=== PATIENT | female | born 1990 | race Two or more races ===

== ENCOUNTER 2024-07-16 18:35 | Emergency (ER) | payer OTHER, MEDICAID, SELFPAY ==
[2024-07-16 18:55] VITALS: BP 108/73; PULSE 70; RESP 20; TEMP 37.2; O2SAT 98
--- NOTE | 2024-07-16 19:03 | PD.EDRME ---
Rapid Medical Screening Exam RME Arrival date/time: 07/16/24 18:35 Chief Complaint: Abdominal Pain Time Seen by Provider: 07/16/24 18:42 Vital signs: Vital Signs Temperature 98.9 F 07/16/24 18:55 Pulse Rate 70 07/16/24 18:55 Respiratory Rate 20 07/16/24 18:55 Blood Pressure 108/73 07/16/24 18:55 Pulse Oximetry (%) 98 07/16/24 18:55 Oxygen Delivery Method Room Air 07/16/24 18:55 Vital signs reviewed by provider: Yes RME Narrative: 33-year-old female presents to the ED with complaint of left lower abdominal pain that radiates to her bilateral low back. She is also experiencing urinary frequency and dysuria. She also has a vaginal discharge. She went to her primary and they tested her urine which was negative for infection. She has felt feverish and chilled.
--- NOTE | 2024-07-16 19:06 | XR_ITS ---
Examination: Pelvic ultrasound, transabdominal, complete Technique: Transabdominal ultrasound of the pelvis performed using grayscale imaging Date and time of exam: July 16, 2024 2036 hours INDICATIONS: Pelvic pain beginning 5 days ago FINDINGS: Uterus 13.4 cm endometrial stripe 1.4 cm Right ovary 3.4 cm arterial flow Left ovary 3.3 cm arterial flow 19 x 16 x 20 mm simple-appearing ovarian cyst IMPRESSION: Left ovarian simple cyst 1.9 x 1.6 x 2.0 cm
--- NOTE | 2024-07-16 19:08 | XR_ITS ---
Examination: CT abdomen and pelvis without contrast. Coronal 3-D reconstructions. Sagittal 2-D reconstructions. Date and time of exam:July 16, 20242024 hours INDICATIONS: Left lower abdominal pain radiating to the back today left flank pain beginning one week ago CTDI: vol (mGy): 9.88 DLP: (mGycm): 507 Technique: Axial images of the abdomen have been obtained, 3 mm slice thickness Intravenous contrast material has not been administered. Low dose protocols were performed. One or more of the following dose reduction techniques were used; automated exposure control, adjustment of the mA and/or KV according to patient size, use of iterative reconstruction technique. Findings: No liver or splenic lesion Absent gallbladder No pancreatic or adrenal mass No renal or ureteral calculi, no hydronephrosis Aorta normal size Normal appendix No bowel obstruction 12 mm fat-containing umbilical hernia Anteverted uterus No uterine or adnexal Mass. No bladder mass or bladder calculi [id number]-[id number] narrowing L5-S1 disc space IMPRESSION: No renal or ureteral calculi, no hydronephrosis Normal appendix No bladder mass or bladder calculi [id number] degenerative disc disease L5-S1
[2024-07-16 19:49] LABS: Basophils % (Auto) 0 % (0-2.5); Eosinophils # (Auto) 0.1 Thou/mm3 (0.0-0.5); Eosinophils % (Auto) 1 % (0-10); Hematocrit 34.7 % (36.0-46.0); Hemoglobin 11.4 g/dL (12.0-16.0); Immature Granulocytes % (Auto) 0 % (0-0); Immature Granulocytes Auto 0.02 Thou/mm3 (0.00-0.00); Lymphocytes # (Auto) 3.4 Thou/mm3 (1.0-4.8); Lymphocytes % (Auto) 36 % (10-50); Mean Corpuscular HGB Conc 32.9 g/dl (31.0-37.0); Mean Corpuscular Hemoglobin 21.1 pg (25.0-35.0); Mean Corpuscular Volume 64 fL (80-100); Monocytes # (Auto) 0.6 Thou/mm3 (0.0-0.8); Monocytes % (Auto) 6 % (0-12); Neutrophils # (Auto) 5.5 Thou/mm3 (1.8-7.7); Neutrophils % (Auto) 57 % (37-80); Nucleated Red Blood Cell % 0 /100 WBC (0); Platelet Count 260 Thou/mm3 (140-440); RDW Standard Deviation 35.8 fL (36.4-46.3); Red Blood Count 5.41 Miln/mm3 (4.00-5.20); White Blood Count 9.6 Thou/mm3 (3.6-11.0)
[2024-07-16 19:50] LABS: Collection Type, Urine Clean Catch; RBC,Urine 0 /hpf (0-3); WBC,Urine 0 /hpf (0-5)
[2024-07-16 19:53] VITALS: BP 114/82; PULSE 72; RESP 20; TEMP 36.7; O2SAT 100
[2024-07-16 19:59] LABS: Bacteria,Urine 3+; Bilirubin,Urine Negative (Negative); Blood,Urine Negative (Negative); Clarity,Urine Clear (Clear/Hazy); Color,Urine Colorless (Lt Yel-Yel); Glucose, Urine Negative (Negative); Ketones,Urine Negative (Negative); Leukocyte Esterase,Urine Negative (Negative); Nitrite,Urine Negative (Negative); PH,Urine 6.5 (5.0-7.0); Protein,Urine Negative (Neg - Trace); Specific Gravity,Urine 1.005 (1.001-1.035); Squamous Epithelial Cell,Urine 2 /hpf (0-5); Urobilinogen,Urine Negative mg/dL (0.0-1.0)
[2024-07-16 20:07] LABS: HCG Qualitative,Urine Negative
[2024-07-16 20:34] LABS: Alanine Aminotransferase 11 U/L (10-49); Albumin, Serum 4.5 gm/dL (3.5-5.0); Albumin/Globulin Ratio 1.5 (1.2-2.2); Alkaline Phosphatase 67 U/L (46-116); Anion Gap 7 (7-16); Aspartate Amino Transferase 15 U/L (0-34); BUN/Creatinine Ratio 11 Ratio (12-20); Bilirubin,Total 0.3 mg/dL (0.3-1.2); Blood Urea Nitrogen 9 mg/dL (9-23); Calcium 9.7 mg/dL (8.3-10.6); Calcium (Corrected) 9.7 mg/dL (8.5-10.1); Carbon Dioxide 25.4 mMol/L (20.0-31.0); Chloride 103 mMol/L (98-107); Creatinine (Component) 0.8 mg/dL (0.6-1.3); Estimated Creatinine Clearance 98.6 mL/min (>60); Globulin 3.1 gm/dL (2.3-3.5); Glucose 93 mg/dL (74-106); Lipase 63 U/L (12-53); Osmolality,Calculated 268 (275-295); Potassium 3.7 mMol/L (3.4-5.1); Sodium 135 mMol/L (136-145); Total Protein 7.6 gm/dL (5.7-8.2); eGFR > 60 See Note
[2024-07-16 21:22] LABS: Amylase 91 U/L (30-118)
[2024-07-16 21:46] VITALS: BP 109/72; PULSE 76; RESP 16; TEMP 36.6; O2SAT 100
--- NOTE | 2024-07-16 22:33 | PC.NURSE ---
PT LEFT AMA DID NOT WANT TO WAIT FOR D/C PAPERS AND MEDICATION. PROVIDER AWARE.
--- NOTE | 2024-07-16 22:58 | EDNOTE_ITS ---
ED Abdominal Pain RME/HPI General Chief Complaint: Abdominal Pain Stated complaint: SEVERE L) LOWER ABD PAIN RADIATING ACROSS BACK Time seen by provider: 07/16/24 18:42 Arrival date/time: 07/16/24 18:35 RME / HPI RME / HPI narrative: Dr. Finnegan?s Main ED Evaluation: 33 y/o female presents to ED c/o LLQ abdominal pain x 1 day. Patient Patient reports associated dysuria. Patient denies taking any Motrin or Tylenol at home. Earlier, patient went to the clinic thinking she had a UTI, but was advised to come to ED for further evaluation. Patient denies any N/V/D, constipation, fever, chills, cough, chest pain, shortness of breath or any other associated symptoms. NKDA. Related Data Previous Rx's ?Medication ?Instructions ?Recorded acetaminophen 500 mg capsule 1,000 mg (2 x 500 mg) PO Q6H PRN 07/16/24 pain #30 caps ibuprofen 600 mg tablet 600 mg PO Q6H PRN pain #20 t abs 07/16/24 Allergies Allergy/AdvReac Type Severity Reaction Status Date / Time WHEAT FLOUR Allergy Severe Swelling Uncoded 07/16/24 18:40 of Lip/Tongue/Throat Review of Systems Review of Systems Systems Reviewed: All systems reviewed, normal except as documented Past Medical History Past Medical History NEUROLOGIC: Positive Neurological Disorders and Migraine (had a blood clot brain 10 yrs ago had blood thinners, done treatment) GASTROINTESTINAL: Positive Gastrointestinal Disorders, Gall Bladder Disease and Obesity REPRODUCTIVE: Positive Previous Pregnancies Family History FAMILY HISTORY: Positive Family Cardiac Disorders Surgical History SURGICAL: Positive Section (x 1) ED Exam Narrative Physical exam: GENERAL APPEARANCE: alert and oriented x 4, well-developed, well-nourished, no acute distress VITALS: All vitals were reviewed and the pulse ox is 100% on room air, which is normal according to my interpretation. HEENT: Normocephalic, atraumatic; pupils equal, round, reactive to light; EOMI; mucous membranes pink, moist; oropharynx clear NECK: Supple LUNGS: CTABL; no wheezes, no rales, no rhonchi HEART: Regular rate, regular rhythm; normal S1, S2; no murmurs ABDOMEN: non distended; normal BS; soft, mld-moderate TTP of LLQ/pelvic area, no guarding, no rebound; no masses, no organomegaly, no hernia BACK: no CVA tenderness EXTREMITIES: atraumatic; no edema NEUROLOGIC: awake; alert and oriented x4; cranial nerves II-XII grossly intact; no focal sensory or motor deficits PSYCHIATRIC: appropriate mood and affect SKIN: warm, dry, normal color; no rashes Course Quality Measures none Orders Category Date Time Status NPO STAT Care 07/16/24 19:[address] abdomen pelvis wo con Stat Exams 07/16/24 19:08 Completed US pelvic complete Stat Exams 07/16/24 19:06 Completed Amylase Stat Lab 07/16/24 19:19 Completed CBC Stat Lab 07/16/24 19:19 Completed Comprehensive Metabolic Panel Stat Lab 07/16/24 19:19 Completed HCG Qualitative,Urine Stat Lab 07/16/24 19:42 Completed Lipase Stat Lab 07/16/24 19:19 Completed Path Review Blood Smear Stat Lab 07/16/24 19:19 Completed Urinalysis Stat Lab 07/16/24 19:42 Completed Acetaminophen Tab [Tylenol ES Tab] Med 07/16/24 22:16 Discontinued 1,000 mg PO X1 ONE Ibuprofen Tab [Motrin Tab] Med 07/16/24 22:16 Discontinued 600 mg PO X1 ONE Vital Signs Vital signs: Vital Signs Temperature 98.9 F 07/16/24 18:55 Pulse Rate 70 07/16/24 18:55 Respiratory Rate 20 07/16/24 18:55 Blood Pressure 108/73 07/16/24 18:55 Pulse Oximetry (%) 98 07/16/24 18:55 Oxygen Delivery Method Room Air 07/16/24 18:55 Abdominal Pain MDM MDM Narrative MDM Narrative:: Scribe Attestation: Eunice Crowell am scribing for and in the presence of Dr. Finnegan. Provider Notation: Although this document has been carefully reviewed, there may still be some phonetic and other typographical errors.? These errors are purely grammatical due to imperfections in the software program and should not be construed in any way to? compromise the substance of the patient's medical care during this visit. Patient data External records reviewed:: [facility] previous records ( Prior ED records reviewed from 09/08/22. Patient was seen for Bilateral leg pain.) Clinical information provided by:: patient Social determinants that could affect healthcare access:: none Patient has the following chronic illnesses:: Gall bladder, Obesity, Migraine How is presenting disease/condition affected by chronic disease/condition?: uneffected by Evaluation data The following diagnostics were reviewed and interpreted by me:: lab results and radiology exam(s) Lab and/or radiology exams considered but not ordered:: None. Interpretation Summary: LABS Chemistry: Sodium 135, BUN/Creatinine 11, Osmality 268, Lipase 63. UA shows bacteria 3+. RADIOLOGY Abdomen/Pelvis CT: Patient: SANTY OGLESBY. Record#: [id number] Birthdate: 1990 Age/Sex: 33 / F Location: [facility] Attending Dr: Ordering Physician: Zandra Ott PA-C Date of Service: 07/16/24 Procedure(s): CT abdomen pelvis wo con Accession Number(s): [id number] cc: Kimani Head MD; NO PRIMARY/FAMILY,PHYSICIAN; Zandra Ott PA-C~ Examination: CT abdomen and pelvis without contrast. Coronal 3-D reconstructions. Sagittal 2-D reconstructions. Date and time of exam:July 16, 20242024 hours INDICATIONS: Left lower abdominal pain radiating to the back today left flank pain beginning one week ago CTDI: vol (mGy): 9.88 DLP: (mGycm): 507 Technique: Axial images of the abdomen have been obtained, 3 mm slice thickness Intravenous contrast material has not been administered. Low dose protocols were performed. One or more of the following dose reduction techniques were used; automated exposure control, adjustment of the mA and/or KV according to patient size, use of iterative reconstruction technique. Findings: No liver or splenic lesion Absent gallbladder No pancreatic or adrenal mass No renal or ureteral calculi, no hydronephrosis Aorta normal size Normal appendix No bowel obstruction 12 mm fat-containing umbilical hernia Anteverted uterus No uterine or adnexal Mass. No bladder mass or bladder calculi Xudt-tx-ahmpeyss narrowing L5-S1 disc space IMPRESSION: No renal or ureteral calculi, no hydronephrosis Normal appendix No bladder mass or bladder calculi Vjbv-ww-qnazyzoc degenerative disc disease L5-S1 Dictated By: Kimani Head MD Signed By: <Electronically signed by Kimani Head MD in OV> 07/16/242104 Pelvis US: Patient: SANTY OGLESBY. Record#: [id number] Birthdate: 1990 Age/Sex: 33 / F Location: [facility] Attending Dr: Ordering Physician: Zandra Ott PA-C Date of Service: 07/16/24 Procedure(s): US pelvic complete Accession Number(s): [id number] cc: Kimani Head MD; NO PRIMARY/FAMILY,PHYSICIAN; Zandra Ott PA-C~ Examination: Pelvic ultrasound, transabdominal, complete Technique: Transabdominal ultrasound of the pelvis performed using grayscale imaging Date and time of exam: July 16, 2024 203 hours INDICATIONS: Pelvic pain beginning 5 days ago FINDINGS: Uterus 13.4 cm endometrial stripe 1.4 cm Right ovary 3.4 cm arterial flow Left ovary 3.3 cm arterial flow 19 x 16 x 20 mm simple-appearing ovarian cyst IMPRESSION: Left ovarian simple cyst 1.9 x 1.6 x 2.0 cm Dictated By: Kimani Head MD Signed By: <Electronically signed by Kimani Head MD in OV> 07/16/242112 Medications / Prescriptions Medications or Prescriptions considered but not ordered:: None Medication administrations:: Medication Administration History Discontinued Medications Acetaminophen (Acetaminophen 500 Mg Tablet) 1,000 mg PO X1 ONE Stop: 07/16/24 22:17 Ibuprofen (Ibuprofen Tab 600 Mg Tablet) 600 mg PO X1 ONE Stop: 07/16/24 22:17 See above if any. Consultations Consultation(s) initiated? (list below): No Diagnosis Differential diagnosis abdominal pain: abdominal pain, acute appendicitis, calculus of kidney, diverticulitis, endometriosis and gastroenteritis Most likely diagnosis given after review of the tests above:: See clinical impression below. Admission Indicated Admission indicated?: not indicated Explain why admission is indicated or not indicated:: Patient has no emergent abnormalities in their studies and can be managed on an outpatient basis. Admission Request Was there a request for admission?: No Disposition Plan Disposition Plan: Discharge Discharge Attestation Discharge Attestation: The patient and all family members were given an opportunity to ask questions and understood the discharge instructions. Discharge instructions specifically effects, indications for sooner follow up or return to the emergency department, and the expected course of current diagnosis. Patient condition: Stable Discharge Plan Plan Patient Disposition: HOME (Self Care) Discharge Disposition comment: Stable for discharge home Patient condition on transfer: Stable Prescriptions/Referrals Prescriptions/Med Rec: New acetaminophen 500 mg capsule 1,000 mg PO Q6H PRN (Reason: pain) Qty: 30 0RF ibuprofen 600 mg tablet 600 mg PO Q6H PRN (Reason: pain) Qty: 20 0RF Referrals: [facility] [Provider Group] - In 1 week Problem List Clinical Impression: Ovarian cyst Patient/Caregiver Discharge Instructions Discharge Activity: activity as tolerated Education Materials: Understanding Ovarian Cysts, Treatment for Ovarian Cysts, ED Ovarian Cyst Additional Instructions: Return to the emergency department for any worsening or any further medical problems and we will help you. Otherwise you should follow-up with your primary care doctor, your primary OB or in the [facility] clinic within the next several days There are 2 prescriptions waiting for you at the pharmacy. One of them is for acetaminophen and the other is ibuprofen. Take 2 tabs of the acetaminophen and 1 tab of the ibuprofen together at the same time every 6 hours for pain. Print Language: Yakut Stand Alone Forms: Sangeeta Award Info., Patient Portal Info Letter
[2024-07-17 01:35] LABS: Path Review Blood Smear Sent to Pathologist
== END 2024-07-16 22:34 | disposition home or self-care (01) ==
PROVIDERS: Physician Assistant; Emergency Provider Emergency Medicine
DX: N83.292 Other ovarian cyst, left side (principal); M51.370 Other intervertebral disc degeneration, lumbosacral region with discogenic back pain only
CPT/HCPCS: 36415; 74176; 76856; 80053; 81001; 81025; 82150; 83690; 85025; 99284

== ENCOUNTER 2024-11-14 10:20 | Outpatient (AMB) | payer OTHER, MEDICAID, SELFPAY ==
[2024-11-14 10:28] VITALS: BP 110/75; PULSE 93; RESP 18; TEMP 36.7; O2SAT 97; BMI 32.3
--- NOTE | 2024-11-14 10:28 | AMB.GYNCLNOT ---
Vital Signs 11/14/24 10:28 Height 1.6 m Height Method Stated Weight 82.781 kg Weight Measurement Method Standing Scale BMI 32.3 BP 110/75 Blood Pressure Source Automatic Cuff Blood Pressure Location Left Upper Arm Position Sitting Respiration 18 Pulse 93 Pulse Source Monitor Temp 98.1 F Temp Source Oral Pulse Oximetry (%) 97 Oxygen Delivery Method Room Air Allergies/Home Meds Allergies & Medications Allergies WHEAT FLOUR Allergy (Severe, Uncoded 11/14/24 10:29) Swelling of Lip/Tongue/Throat Medication Reconciliation letrozole 2.5 mg tablet 2.5 mg PO QDAY 5 days #5 tabs 11/14/24 [Rx] Intake Visit Data Collection New Patient or Established: Established Patient (seen at [facility] within 3 years) Reason for Visit:: INFERTILITY CONCERNS Seen by Clinical Staff ONLY (RN/MA): No 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: No Do You Feel Safe at Home: Yes Authorities Contacted: N/A PCP or OBGYN visit in last 3 months: Yes Hx Now: No Are you currently on any form of Control: No Last menstrual period: 10/26/24 Pain Present Currently: No Pain Scale Used: Escobar-Chong/Numerical Pain scale:: 0 Smoking Status Smoking Status: Never smoker Reproduction Order Processor 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 Reproduction 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 Processor 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 Menstrual regularity: regular Flow: normal Monthly: Yes How many days does period last: 4 Age at menarche: 11 Currently sexually active: Yes [place]ERETTE: Past Medical History Past Medical History: Yes Hx Neurological Disorders, No Hx Breast Cancer, No Hx Cardiac Disorders, No Hx Cancer, No Hx Blood Disorders, Yes Hx Gastrointestinal Disorders, No Hx Renal Disease, No Hx Diabetes Mellitus Type 1 and No Hx Diabetes Mellitus Type 2 Questionnaires Covid-19 Vaccine Questionnaire Has patient been vacinated for Covid-19 Have you been vacinated for Covid-19: Yes PHQ-9 PHQ-2 Over the last 2 weeks, how often have you been bothered by any of the following problems? 1. Little interest or pleasure in doing things: not at all 2. Feeling down, depressed, or hopeless: not at all Total score: 0 PHQ-9 3. Trouble falling or staying asleep, or sleeping too much: Not at all 4. Feeling tired or having little energy: Not at all 5. Poor appetite or overeating: Not at all 6. Feeling bad about yourself - or that you are a failure or have let yourself or your family down: Not at all 7. Trouble concentrating on things, such as reading the newspaper or watching television: Not at all 8. Moving or speaking so slowly that other people could have noticed? - Or the opposite - being so fidgety or restless that you have been moving around a lot more than usual: not at all 9. Thoughts that you would be better off or of hurting yourself in some way: Not at all Total score: 0 Source: Developed by Drs. Calvin Minaya, Heather Abreu, Christopher Conley and colleagues, with an educational lisa from [employer]. Depression screen completed yes Social History Living Situation History Housing: House Tobacco History Smoking Status: Never smoker Alcohol History Alcohol Intake: Never Domestic Abuse History Do You Feel Safe at Home: Yes History of Present Illness HPI Narrative Eunice Dasilva, a patient with a history of prediabetes and low vitamin D, presents for follow-up of an infertility evaluation conducted over a year ago. She reports regular menstrual cycles and positive ovulation tests, indicating she is timing intercourse accordingly. The patient experienced a miscarriage in September of the previous year. Since her last visit, Eunice has been managing her prediabetes through diet. She reports experiencing hot flushes, which she first noticed when she began losing weight. These hot flushes are significant enough that she uses a fan for relief. She denies any foul-smelling discharge or other gynecological symptoms. Euncie mentions difficulty in scheduling appointments due to limited provider availability. She has been tracking her menstrual cycles closely, expecting her next period around the 14th or 15th of the current month. 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 Exam General General Appearance: alert, in no apparent distress and healthy appearing Head Head exam: atraumatic Neck Neck exam: Present normal inspection and trachea midline Chest Chest inspection: Present normal inspection and symmetric chest wall rise External exam: Present normal external exam; Absent tenderness Neuro Neurological exam: Present oriented X3 Psych Psychiatric exam: Present normal affect and normal mood Office Procedures OB Clinic LOC & Office Proc's Nursing/Assessment Patient Status: Established Patient OB Clinic Nursing Assessment: Medication Reconciliation, Update PMH in EMR and Vital Signs OB Clinic Coordination of Care: Complex Care and Chronic Disease 1-5, Consent,records obtained, informed consent, Education Simp Pt/Fam, Lab and Imaging orders, Results/Orders obtained and Staff clarify orders Established Patient Charge Established Patient Point Assignment: 105 Established Patient Point Charge: EP Level 3 (80-115) Assessment & Plan Diagnosis / Problem List (1) Abnormal uterine and vaginal bleeding, unspecified: Status: Acute Plan Infertility Assessment: Patient reports regular menstrual cycles with positive ovulation tests. She times intercourse with ovulation. Previous evaluation revealed prediabetes and low vitamin D, which may be contributing factors to fertility issues. No foul-smelling discharge or other symptoms reported. Plan: - Prescribe letrozole for 5 days starting on day 3 of menstrual cycle - Order A1c and thyroid function tests - Schedule ultrasound to evaluate for fibroids, cysts, or other changes since last evaluation - Continue ovulation monitoring and timed intercourse - Follow-up appointment in approximately one month to review results and treatment response Prediabetes Assessment: Patient was previously diagnosed with prediabetes that was diet-managed. No recent A1c testing has been performed to reassess glycemic control. Plan: - Order A1c test - Results to be reviewed at follow-up appointment Vitamin D Deficiency Assessment: Patient had low vitamin D levels on previous evaluation. Current status unknown. Plan: - Consider rechecking vitamin D levels Hot Flushes Assessment: Patient reports experiencing hot flushes, which she noticed after weight loss. This symptom is assessed as likely related to weight loss rather than premature menopause, given the patient's reproductive goals. Plan: - Reassure patient that hot flushes can be a normal occurrence with weight loss due to fluid shifts - Monitor symptoms
== END 2024-11-14 10:52 | disposition home or self-care (01) ==
LOC: HODSOBC 10:20
PROVIDERS: Supervising Provider Obstetrics & Gynecology; Visit Provider Obstetrics & Gynecology
DX: N93.9 Abnormal uterine and vaginal bleeding, unspecified (principal); N97.9 Female infertility, unspecified; R73.03 Prediabetes; E55.9 Vitamin D deficiency, unspecified; R23.2 Flushing
CPT/HCPCS: 99213; G0463

== ENCOUNTER → 2024-11-14 | Outpatient (CLI) | payer OTHER, MEDICAID, SELFPAY ==
[2024-11-14 12:19] LABS: Glucose Estimated Average 108 mg/dL (80-131); Hemoglobin A1C 5.4 % Hgb (4.8-6.0)
[2024-11-14 12:26] LABS: Thyroid Stimulating Hormone 1.81 uIU/mL (0.55-4.78)
[2024-11-14 12:27] LABS: Follicle Stimulating Hormone 6.81 mIU/mL (See Note)
== END | disposition home or self-care (01) ==
PROVIDERS: PCP Family Medicine; Referring Provider Obstetrics & Gynecology; Visit Provider Obstetrics & Gynecology
DX: N93.9 Abnormal uterine and vaginal bleeding, unspecified (principal)
CPT/HCPCS: 36415; 83001; 83036; 84443

== ENCOUNTER → 2024-12-07 | Outpatient (CLI) | payer OTHER, MEDICAID, SELFPAY ==
--- NOTE | 2024-12-07 16:15 | XR_ITS ---
Examination: Pelvic ultrasound, transabdominal, complete Technique: Transabdominal ultrasound of the pelvis performed using grayscale imaging Date and time of exam: December 07, 2024, 1559 hrs. Indications: Pelvic sonogram July 16, 2024 left ovarian cyst 20 mm Findings: Uterus 11.6 cm endometrial stripe 0.1 cm No uterine mass or intrauterine gestation Right ovary 4.0 cm arterial flow, 32 x 22 x 21 mm cyst Left ovary 2.4 cm arterial flow Impression: Right ovarian simple cyst 32 x 22 x 21 mm
== END | disposition home or self-care (01) ==
PROVIDERS: PCP Physician Assistant Medical; Referring Provider Obstetrics & Gynecology; Visit Provider Obstetrics & Gynecology
DX: N83.291 Other ovarian cyst, right side (principal)
CPT/HCPCS: 76856

== ENCOUNTER 2024-12-23 05:01 | Emergency (ER) | payer OTHER, MEDICAID, SELFPAY ==
[2024-12-23 05:02] VITALS: BMI 31.8
--- NOTE | 2024-12-23 05:05 | EKG_ITS ---
[facility] Test Date: 2024-12-23 Pat Name: SANTY OGLESBY Department: Room: - Gender: Female Reporter Anchor: : 1990 Requested By: ED Temporary Provider Order Number: [id number] Reading MD: ED Temporary Provider Measurements Intervals [place] Rate: 84 P: 35 [place]: 153 QRS: 23 QRSD: 89 T: 48 QT: 352 QTc: 417 Interpretive Statements SINUS RHYTHM POSSIBLE LEFT ATRIAL ENLARGEMENT [-0.1mV P-WAVE IN V1/V2] No previous ECG available for comparison /store/S0/[id number].pdf
[2024-12-23 05:16] VITALS: BP 111/52; PULSE 82; RESP 18; TEMP 36.7; O2SAT 98
--- NOTE | 2024-12-23 05:21 | XR_ITS ---
EXAMINATION: PA chest single view TECHNIQUE: Upright PA chest single view Date and time: December 23, 2024, 0545 hours, comparison October 30, 2013 INDICATIONS: Chest pain shortness of breath beginning 2.5 months ago FINDINGS: Normal heart size Lungs are clear. Osseous tractors are intact. IMPRESSION: No active disease
--- NOTE | 2024-12-23 05:28 | PD.EDRME ---
Rapid Medical Screening Exam RME Arrival date/time: 12/23/24 05:01 This is a case of 34-year-old female with no medical history came into the emergency room due to chest pain palpitation and shortness of breath starting last night persistence of the symptoms this patient decided to start consult her in the emergency room Chief Complaint: Chest Pain Time Seen by Provider: 12/23/24 05:18 Vital signs: Vital Signs Temperature 98.1 F 12/23/24 05:16 Pulse Rate 82 12/23/24 05:16 Respiratory Rate 18 12/23/24 05:16 Blood Pressure 111/52 L 12/23/24 05:16 Pulse Oximetry (%) 98 12/23/24 05:16 Oxygen Delivery Method Room Air 12/23/24 05:16
[2024-12-23 06:23] LABS: Collection Type, Urine Clean Catch
[2024-12-23 06:27] LABS: Basophils # (Auto) 0.0 Thou/mm3 (0.0-0.2); Basophils % (Auto) 0 % (0-2.5); Eosinophils # (Auto) 0.2 Thou/mm3 (0.0-0.5); Eosinophils % (Auto) 3 % (0-10); Hematocrit 37.2 % (36.0-46.0); Hemoglobin 11.4 g/dL (12.0-16.0); Immature Granulocytes Auto 0.03 Thou/mm3 (0.00-0.00); Lymphocytes # (Auto) 2.2 Thou/mm3 (1.0-4.8); Lymphocytes % (Auto) 27 % (10-50); Mean Corpuscular HGB Conc 30.6 g/dl (31.0-37.0); Mean Corpuscular Hemoglobin 20.1 pg (25.0-35.0); Mean Corpuscular Volume 66 fL (80-100); Monocytes # (Auto) 0.6 Thou/mm3 (0.0-0.8); Monocytes % (Auto) 7 % (0-12); Neutrophils # (Auto) 5.2 Thou/mm3 (1.8-7.7); Neutrophils % (Auto) 63 % (37-80); Nucleated Red Blood Cell # 0.00 Thou/mm3 (0.00-0.00); Nucleated Red Blood Cell % 0 /100 WBC (0); Platelet Count 340 Thou/mm3 (140-440); RDW Standard Deviation 37.0 fL (36.4-46.3); Red Blood Count 5.67 Miln/mm3 (4.00-5.20); White Blood Count 8.3 Thou/mm3 (3.6-11.0)
[2024-12-23 06:38] LABS: Bacteria,Urine Rare; Bilirubin,Urine Negative (Negative); Blood,Urine Negative (Negative); Clarity,Urine Clear (Clear/Hazy); Color,Urine Colorless (Lt Yel-Yel); Glucose, Urine Negative (Negative); Ketones,Urine Negative (Negative); Leukocyte Esterase,Urine Negative (Negative); Nitrite,Urine Negative (Negative); PH,Urine 6.0 (5.0-7.0); Protein,Urine Negative (Neg - Trace); RBC,Urine 3 /hpf (0-3); Specific Gravity,Urine 1.008 (1.001-1.035); Squamous Epithelial Cell,Urine 5 /hpf (0-5); Urobilinogen,Urine Negative mg/dL (0.0-1.0); WBC,Urine < 1 /hpf (0-5)
[2024-12-23 06:39] LABS: HCG Qualitative,Urine Negative
[2024-12-23 06:47] LABS: D-Dimer 489 ng/mL (<600)
[2024-12-23 06:51] LABS: B-Type Natriuretic Peptide < 20 pg/mL (0-100)
[2024-12-23 06:55] LABS: Alanine Aminotransferase 12 U/L (10-49); Albumin, Serum 4.3 gm/dL (3.5-5.0); Albumin/Globulin Ratio 1.5 (1.2-2.2); Alkaline Phosphatase 69 U/L (46-116); Anion Gap 10 (7-16); Aspartate Amino Transferase 16 U/L (0-34); BUN/Creatinine Ratio 10 Ratio (12-20); Bilirubin,Total 0.2 mg/dL (0.3-1.2); Blood Urea Nitrogen 10 mg/dL (9-23); Calcium 9.0 mg/dL (8.3-10.6); Calcium (Corrected) 9.0 mg/dL (8.5-10.1); Carbon Dioxide 24.0 mMol/L (20.0-31.0); Chloride 107 mMol/L (98-107); Creatinine (Component) 1.0 mg/dL (0.6-1.3); Estimated Creatinine Clearance 79.5 mL/min (>60); Globulin 2.8 gm/dL (2.3-3.5); Glucose 97 mg/dL (74-106); Osmolality,Calculated 280 (275-295); Potassium 4.0 mMol/L (3.4-5.1); Sodium 141 mMol/L (136-145); Thyroid Stimulating Hormone 2.00 uIU/mL (0.55-4.78); Total Protein 7.1 gm/dL (5.7-8.2); Troponin I < 0.002 ng/mL (0.0-0.045); eGFR > 60 See Note
[2024-12-23 07:18] VITALS: BP 114/59; PULSE 83; RESP 19; TEMP 36.6; O2SAT 97
--- NOTE | 2024-12-23 07:38 | EDNOTE_ITS ---
ED Chest Pain RME/HPI General Chief Complaint: Chest Pain Stated Complaint: CHEST THIGHTNESS, SMITH, COUGH SINCE OCTOBER Time Seen by Provider: 12/23/24 05:18 Arrival date/time: 12/23/24 05:01 RME / HPI RME / HPI narrative: 12/23/24 05:01 This is a case of 34-year-old female with no medical history came into the emergency room due to chest pain palpitation and shortness of breath starting last night persistence of the symptoms this patient decided to start consult her in the emergency room DR. GUTIERREZ MAIN ED EVALUATION: 34-year-old female with no significant past medical history presenting to the Emergency Department for evaluation of chest pain ongoing since late October 2024. The pain is associated with a persistent dry cough, occasional wheezing, and intermittent headaches. The cough is worse at night. She also reports mild sore throat, hot flashes, and episodes of sweating 2?3 times per week. She denies rhinorrhea, fever, chills, nausea, vomiting, or shortness of breath. Patient states she has seen her primary care physician but did not establish a diagnosis. She takes no daily medications. Related Data Previous Rx's ?Medication ?Instructions ?Recorded letrozole 2.5 mg tablet 2.5 mg PO QDAY 5 days #5 tab s 11/14/24 benzonatate 200 mg capsule 200 mg PO TID PRN cough #20 caps 12/23/24 Allergies Allergy/AdvReac Type Severity Reaction Status Date / Time WHEAT FLOUR Allergy Severe Swelling Uncoded 12/23/24 05:02 of Lip/Tongue/Throat Review of Systems Review of Systems Systems Reviewed: All systems reviewed, normal except as documented Past Medical History Social History SMOKING STATUS: Never smoker SUBSTANCE USE: does not use ALCOHOL: Never ED Exam Narrative Physical exam: Constitutional: Awake, alert, nontoxic, no acute distress, occasional dry cough HEENT: Normocephalic, atraumatic, extraocular movements intact. Neck: Supple CV: Regular rate and rhythm, no murmurs/rubs/gallops Lungs: Clear to auscultation BL, no respiratory distress. Abd: Soft, NT, ND, no HSM noted to palpation Extremities: No deformities, no edema noted Neuro: AAOx3, no acute neuro deficit noted. Skin: Warm, dry, intact Course Quality Measures none Orders Category Date Time Status EKG (ED ONLY) *Do not use* NOW Care 12/23/24 05:05 Completed EKG (ED Only) Stat Exams 12/23/24 05:05 Draft XR chest 1V Stat Exams 12/23/24 05:21 Completed BNP [B-Type Natriuretic Peptide] Stat Lab 12/23/24 06:00 Completed CBC Stat Lab 12/23/24 06:00 Completed Cocci Serology IgM with reflex to IgG [Cocci Serology, Lab 12/23/24 07:59 Received Unk History] Stat Comprehensive Metabolic Panel Stat Lab 12/23/24 06:00 Completed D-Dimer Stat Lab 12/23/24 06:00 Completed HCG Qualitative,Urine Stat Lab 12/23/24 06:01 Completed TSH [Thyroid Stimulating Hormone] Stat Lab 12/23/24 06:00 Completed Troponin I Stat Lab 12/23/24 06:00 Completed Urinalysis Stat Lab 12/23/24 06:01 Completed Acetaminophen Ivpb [Ofirmev Inj] Med 12/23/24 07:38 Discontinued 1,000 mg in 100 ml IV NOW Ketorolac Inj [Toradol Inj] Med 12/23/24 07:38 Discontinued 30 mg IVP X1 ONE Prochlorperazine Inj [Compazine Inj] Med 12/23/24 07:38 Discontinued 10 mg IV X1 ONE Vital Signs Vital signs: Vital Signs Temperature 98.1 F 12/23/24 05:16 Pulse Rate 82 12/23/24 05:16 Respiratory Rate 18 12/23/24 05:16 Blood Pressure 111/52 L 12/23/24 05:16 Pulse Oximetry (%) 98 12/23/24 05:16 Oxygen Delivery Method Room Air 12/23/24 05:16 Chest Pain MDM Narrative MDM Narrative:: IZee am scribing for and in the presence of Dr. Gutierrez. Patient coming in for chronic dry cough ongoing for last couple of months. Has generally benign exam today, vitally stable, labs generally unremarkable. Advised on symptomatic treatment at this time. Test for valley fever was sent off. To follow-up closely with her primary doctor for further outpatient evaluation and management. Patient data External records reviewed:: [facility] previous records Clinical information provided by:: patient and spouse Social determinants that could affect healthcare access:: none Patient has the following chronic illnesses:: Denies any PMHx, surgeries, daily medications, or known allergies. How is presenting disease/condition affected by chronic disease/condition?: no chronic disease Evaluation data The following diagnostics were reviewed and interpreted by me:: lab results, radiology exam(s) and EKG tracing(s) (My interpretation: EKG performed at 0513 hours, sinus rhythm, rate 84, no STEMI) Lab and/or radiology exams considered but not ordered:: none Interpretation Summary: See MDM narrative above. RADIOLOGY Procedure(s): XR chest 1V Accession Number(s): [id number] cc: Kimani Head MD; NO PRIMARY/FAMILY,PHYSICIAN; Yun Varghese~ EXAMINATION: PA chest single view TECHNIQUE: Upright PA chest single view Date and time: December 23, 2024, 0545 hours, comparison October 30, 2013 INDICATIONS: Chest pain shortness of breath beginning 2.5 months ago FINDINGS: Normal heart size Lungs are clear. Osseous tractors are intact. IMPRESSION: No active disease Dictated By: Kimani Head MD Medications / Prescriptions Medications or Prescriptions considered but not ordered:: none Medication administrations:: Medication Administration History Discontinued Medications Acetaminophen (Ofirmev Inj) 1,000 mg in 100 mls @ 250 mls/hr IV NOW ONE Stop: 12/23/24 08:01 Last Infusion: 12/23/24 09:01 Dose: Infused Documented By: Admin: 12/23/24 08:25 Dose: 250 mls/hr Documented By: CAMERON Ketorolac Tromethamine (Ketorolac Inj 30 Mg/Ml Vial) 30 mg IVP X1 ONE Stop: 12/23/24 07:39 Last Admin: 12/23/24 08:25 Dose: 30 mg Documented By: CAMERON Prochlorperazine Edisylate (Prochlorperazine Inj 5 Mg/Ml Vial 2 Ml) 10 mg IV X1 ONE; Protocol Stop: 12/23/24 07:39 Last Admin: 12/23/24 08:24 Dose: 10 mg Documented By: CAMERON Comments: GIVEN THROUGH PT'S IV 18G R AC IN 2 MINUTES see above if any Consultations Consultation(s) initiated? (list below): No Diagnosis Chest Pain Differential Diagnosis: other (Viral bronchitis, post-viral cough, reactive airway disease/asthma, GERD-related cough, perimenopausal symptoms, atypical pneumonia.) Most likely diagnosis given after review of the tests above:: Headache Cough Admission Indicated Admission indicated?: not indicated Admission Request Was there a request for admission?: No Disposition Plan Disposition Plan: Discharge Discharge Attestation Discharge Attestation: The patient and all family members were given an opportunity to ask questions and understood the discharge instructions. Discharge instructions specifically effects, indications for sooner follow up or return to the emergency department, and the expected course of current diagnosis. Patient condition: Stable Discharge Plan Plan Patient Disposition: HOME (Self Care) Patient condition on transfer: Stable Prescriptions/Referrals Prescriptions/Med Rec: New benzonatate 200 mg capsule 200 mg PO TID PRN (Reason: cough) Qty: 20 0RF No Action letrozole 2.5 mg tablet 2.5 mg PO QDAY 5 Days Qty: 5 4RF Rx Instructions: begin on days 3 of menstrual cycle Referrals: No Primary/Family,Physician [Primary Care Provider] - In 1 week Problem List Clinical Impression: Headache, Cough Patient/Caregiver Discharge Instructions Education Materials: Self-Care for Headaches, ED Cough Chronic Uncertain Cause Adult Additional Instructions: Some general health principles that can help you are the NEW START principles: Nutrition (eat a plant-based diet, avoiding meats in general, avoiding highly processed foods) Exercise (Daily exercise/walks as tolerated) Water (Drink adequate fresh water to maintain hydration, concentrating on water rather than on soda, coffee, tea, juice, etc for hydration) [place] (Spend time - 15-20 minutes or so with skin exposed in the trouble lineman and late evening sun for Vitamin D health benefits) [place] (Avoid alcohol, illicit drugs, caffeinated beverages, smoking, etc) Air (Deep breathing exercises in the early mornings in fresh air) Rest (Adequate rest at night, going to bed a few hours before midnight and avoiding all screens/television/loud music in the time right before going to bed, also avoiding heavy meals just prior to going to bed) Trust in God (Spend time daily in Bible study and prayer - health benefits in contemplation of God's true character) Additional resources that can benefit: [email or web address], look under resources and seminars. Another good website is [email or web address] Print Language: Luxembourgish Stand Alone Forms: Sangeeta Award Info., Patient Portal Info Letter
[2024-12-23] MEDS: PROCHLORPERAZINE INJ 5 MG/ML VIAL 2 ML 10 MG IV (08:24)
[2024-12-23] MEDS: ACETAMINOPHEN IVPB 1,000 MG/100 ML VIAL 250 MG IV (08:25)
[2024-12-23] MEDS: KETOROLAC INJ 30 MG/ML VIAL IVP (08:25)
[2024-12-23 09:02] VITALS: BP 105/55; PULSE 72; RESP 15; TEMP 36.4; O2SAT 99
[2024-12-23 15:00] LABS: Cocci Serology, IgM Negative (Negative)
[2024-12-24 14:40] LABS: Cocci Serology, IgG Negative (Negative)
== END 2024-12-23 09:08 | disposition home or self-care (01) ==
PROVIDERS: Nurse Practitioner Family; Emergency Provider Family Medicine
DX: R05.9 Cough, unspecified (principal); R51.9 Headache, unspecified
CPT/HCPCS: 36415; 71045; 80053; 81001; 81025; 83880; 84443; 84484; 85025; 85379; 86331; 86635; 93005; 96365; 96375; 99284; J0131; J0780; J1885

== ENCOUNTER 2024-12-26 09:49 | Outpatient (AMB) | payer OTHER, MEDICAID, SELFPAY ==
[2024-12-26 10:07] VITALS: BP 109/76; PULSE 74; RESP 17; TEMP 36.8; O2SAT 98; BMI 32.6
--- NOTE | 2024-12-26 10:07 | AMB.GYNCLNOT ---
Vital Signs 12/26/24 10:07 Height 1.6 m Height Method Stated Weight 83.688 kg Weight Measurement Method Standing Scale BMI 32.6 BP 109/76 Blood Pressure Source Automatic Cuff Blood Pressure Location Right Upper Arm Position Sitting Respiration 17 Pulse 74 Pulse Source Monitor Temp 98.2 F Temp Source Temporal Artery Scan Pulse Oximetry (%) 98 Oxygen Delivery Method Room Air Allergies/Home Meds Allergies & Medications Allergies WHEAT FLOUR Allergy (Severe, Uncoded 12/26/24 10:09) Swelling of Lip/Tongue/Throat Intake Visit Data Collection New Patient or Established: Established Patient (seen at [facility] within 3 years) Reason for Visit:: FOLLOW UP Seen by Clinical Staff ONLY (RN/MA): No Navigating Officer Required: No Do You Feel Safe at Home: Yes Authorities Contacted: N/A PCP or OBGYN visit in last 3 months: Yes Date of Last PCP or OBGYN visit: 12/23/24 Hx Now: No Are you currently on any form of Control: No Last menstrual period: 12/24/24 Pain Present Currently: No Pain Scale Used: Escobar-Chong/Numerical Pain scale:: 0 Smoking Status Smoking Status: Never smoker 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 Menstrual regularity: regular Flow: normal Monthly: Yes How many days does period last: 5 Age at menarche: 11 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 1. Little interest or pleasure in doing things: not at all 2. Feeling down, depressed, or hopeless: not at all Total score: 0 PHQ-9 3. Trouble falling or staying asleep, or sleeping too much: Not at all 4. Feeling tired or having little energy: Not at all 5. Poor appetite or overeating: Not at all 6. Feeling bad about yourself - or that you are a failure or have let yourself or your family down: Not at all 7. Trouble concentrating on things, such as reading the newspaper or watching television: Not at all 8. Moving or speaking so slowly that other people could have noticed? - Or the opposite - being so fidgety or restless that you have been moving around a lot more than usual: not at all 9. Thoughts that you would be better off or of hurting yourself in some way: Not at all Total score: 0 If you checked off any problems, how difficult have these problems made it for you to do your work, take care of things at home, or get along with other people?: not difficult at all Source: Developed by Drs. Calvin Minaya, Heather Abreu, Christopher Conley and colleagues, with an educational lisa from [employer]. 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 She was last seen on November 14, 2024, at which time she presented with inability to conceive after approximately one year of trying. She was prescribed letrozole to be started on day 3 of her menstrual cycle and had lab work and ultrasound ordered. The patient reports that she took the prescribed medication and did ovulate with the letrozole treatment, indicating the medication is working effectively. She continues to follow the treatment regimen as prescribed and is taking her vitamin D supplementation as recommended. She is a 34-year-old female. The patient has been taking letrozole starting on day 3 of menstrual cycle. Patient confirmed taking the medicine and ovulated with it. She is also taking vitamin D. - Pelvic ultrasound (12-23-2024): Uterus measuring 11.6 cm, endometrial stripe 0.1 cm, no intrauterine mass or gestation, right ovary 4 cm with 32 x 22 x 21 mm cyst, left ovary 2.4 cm Exam General General Appearance: alert, in no apparent distress and healthy appearing Head Head exam: atraumatic Neck Neck exam: Present normal inspection and trachea midline Chest Chest inspection: Present normal inspection and symmetric chest wall rise External exam: Present normal external exam; Absent tenderness Neuro Neurological exam: Present oriented X3 Psych Psychiatric exam: Present normal affect and normal mood Office Procedures O[facility] Clinic LOC & Office Proc's Nursing/Assessment Patient Status: Established Patient OB Clinic Nursing Assessment: Medication Reconciliation, Update PMH in EMR and Vital Signs OB Clinic Coordination of Care: Complex Care and Chronic Disease 1-5, Education Complex Pt/Fam, Consent,records obtained, informed consent, Results/Orders obtained and Staff clarify orders Established Patient Charge Established Patient Point Assignment: 95 Established Patient Point Charge: EP Level 3 (80-115) Assessment & Plan Diagnosis / Problem List (1) Abnormal uterine and vaginal bleeding, unspecified: Status: Acute Plan Secondary Infertility: - 34-year-old female with one year of inability to conceive. - Currently treated with letrozole starting day 3 of menstrual cycle with successful ovulation. - Recent pelvic ultrasound (12-23-2024) shows enlarged uterus at 11.6 cm consistent with prior findings, normal endometrial stripe 0.1 cm, right ovary 4 cm with [id number] mm cyst, left ovary 2.4 cm. - Ultrasound findings reassuring with normal study results. Plan: - Continue current letrozole regimen for 3 cycles. - If unsuccessful after 3 cycles, increase letrozole to 5 mg. - If still unsuccessful, further increase to 7.5 mg. - Continue ovulation monitoring. - If patient misses period, perform home test first. - If home test negative, call clinic for further instructions. - Schedule follow-up in 2 months. - Continue vitamin D supplementation.
== END 2024-12-26 10:26 | disposition home or self-care (01) ==
LOC: HODSOBC 09:49
PROVIDERS: Supervising Provider Obstetrics & Gynecology; Visit Provider Obstetrics & Gynecology
DX: N93.9 Abnormal uterine and vaginal bleeding, unspecified (principal); N97.9 Female infertility, unspecified
CPT/HCPCS: 99213; G0463